=== PATIENT | male | born 1995 ===

== ENCOUNTER 2024-09-22 19:18 | Emergency (ER) | payer SELFPAY ==
[~2024-09-22] VITALS: Ht 175.3 cm; Wt 95.2 kg
[~2024-09-22 19:18] MED LIST: AMOX500 PO; DIPH50 PO; HYDACE5 PO; IBUP600 PO; IBUP800 PO; METPRE4DP PO; NAPR500 PO; PENVK500 PO; PERM5TC TOP
[2024-09-22 19:22] VITALS: BP 127/68
[2024-09-22 21:12] LABS: CORONAVIRUS COVID-19 AG Negative (NEGATIVE); INFLUENZA A AG Negative (NEGATIVE); INFLUENZA B AG Negative (NEGATIVE)
[2024-09-22] MEDS ORDERED: BENZ100A PO (22:13)
== END 2024-09-22 22:05 | disposition home or self-care (01) ==
LOC: ER 19:18
PROVIDERS: Physician Assistant
DX: J06.9 Acute upper respiratory infection, unspecified (principal)
CPT/HCPCS: 87081; 87428-QW; 87430; 99283